=== PATIENT | female | born 1960 | race Asian ===

== ENCOUNTER 2019-02-10 00:07 | Inpatient (IN) | payer MEDICAID ==
[~2019-02-10] VITALS: Ht 152.4 cm; Wt 52.2 kg
[2019-02-10] VITALS (9 sets, daily range): BP systolic 97–127
[2019-02-10] MEDS ORDERED: NACL 0.9% 1,000 ML IV ONE (00:30)
[2019-02-10 00:46] LABS: BASOPHILS % (AUTO) 0.4 % (0.0-2.0); EOSINOPHILS # (AUTO) 0.1 K/uL (0.0-0.4); EOSINOPHILS % (AUTO) 1.2 % (0.0-4.0); HEMATOCRIT 40.1 % (36-48); HEMOGLOBIN 13.4 g/dL (12.0-16.0); LYMPHOCYTES # (AUTO) 3.5 K/uL (1.0-5.5); LYMPHOCYTES % (AUTO) 45.5 % (20.5-51.5); MEAN CORPUSCULAR HEMOGLOBIN 32 pg (27-31); MEAN CORPUSCULAR HGB CONC 33 % (32-36); MEAN CORPUSCULAR VOLUME 97 fL (79.0-98.0); MONOCYTES # (AUTO) 0.8 K/uL (0.0-1.0); MONOCYTES % (AUTO) 10.3 % (1.7-9.3); NEUTROPHILS # (AUTO) 3.3 K/uL (1.8-7.7); NEUTROPHILS % (AUTO) 42.6 % (40.0-70.0); PLATELET COUNT (AUTO) 219 K/uL (130-430); RED BLOOD CELL COUNT(AUTO) 4.13 MIL/uL (4.2-6.2); RED CELL DISTRIBUTION WIDTH 12.9 % (9.0-15.0); WHITE BLOOD COUNT (AUTO) 7.7 K/uL (4.8-10.8)
[2019-02-10 01:12] LABS: ANION GAP 9 (5-15); CALCIUM 9.2 mg/dL (8.4-11.0); CHLORIDE 103 mmol/L (98-107); CREATININE 0.58 mg/dL (0.55-1.30); GLUCOSE 108 mg/dL (70-99); POTASSIUM 3.6 mmol/L (3.5-5.1); SODIUM SERUM 138 mmol/L (136-145); UREA NITROGEN, BLOOD 18 mg/dL (8-21)
[2019-02-10] MEDS ORDERED: BISO5TAB15 PO (01:13)
[2019-02-10 01:21] LABS: ALANINE AMINOTRANSFERASE 22 U/L (12-78); ALBUMIN 3.6 g/dL (3.4-4.8); ASPARTATE AMINOTRANSFERASE 26 U/L (10-37); TOTAL BILIRUBIN 0.4 mg/dL (0.0-1.0)
[2019-02-10 01:25] LABS: GFR AFRICAN AMERICAN 137 mL/min (>90)
[2019-02-10 02:10] LABS: BILIRUBIN,URINE NEGATIVE (NEGATIVE); CLARITY/URINE CLEAR (CLEAR); COLOR,URINE YELLOW (YELLOW); GLUCOSE,URINE NEGATIVE (NEGATIVE); KETONES,URINE NEGATIVE (NEGATIVE); LEUKOCYTE ESTERASE ,URINE NEGATIVE (NEGATIVE); NITRITE, URINE NEGATIVE (NEGATIVE); PROTEIN URINE NEGATIVE (NEGATIVE); UROBILINOGEN,URINE 0.2 (0.2-1.0)
[2019-02-10 02:17] LABS: BLOOD, URINE TRACE (NEGATIVE)
[2019-02-10 03:18] LABS: BACTERIA,URINE FEW /HPF (None Seen); WBC,URINE 0-3 /HPF (0-3)
[2019-02-10] MEDS ORDERED: MORPHINE 2 MG/ML INJ. SYRINGE IVP PRN (04:15)
[2019-02-10] MEDS ORDERED: ONDANSETRON HCL 4 MG/2 ML VIAL IVP PRN (04:15)
[2019-02-10] MEDS ORDERED: ALBUTEROL SULFATE 0.083% 2.5 MG/3 ML VIAL.NEB INH PRN (04:15)
[2019-02-10] MEDS ORDERED: MORPHINE 4 MG/ML INJ. SYRINGE IVP PRN (04:15)
[2019-02-10] MEDS: NACL 0.9% 1,000 ML IV SCH ×2 (06:01→17:53)
[2019-02-10 09:22] LABS: BASOPHILS % (AUTO) 0.2 % (0.0-2.0); EOSINOPHILS % (AUTO) 0.1 % (0.0-4.0); HEMATOCRIT 40.8 % (36-48); HEMOGLOBIN 13.6 g/dL (12.0-16.0); LYMPHOCYTES # (AUTO) 1.9 K/uL (1.0-5.5); LYMPHOCYTES % (AUTO) 23.8 % (20.5-51.5); MEAN CORPUSCULAR HEMOGLOBIN 32 pg (27-31); MEAN CORPUSCULAR HGB CONC 33 % (32-36); MEAN CORPUSCULAR VOLUME 97 fL (79.0-98.0); MONOCYTES # (AUTO) 0.4 K/uL (0.0-1.0); MONOCYTES % (AUTO) 5.4 % (1.7-9.3); NEUTROPHILS # (AUTO) 5.6 K/uL (1.8-7.7); NEUTROPHILS % (AUTO) 70.5 % (40.0-70.0); PLATELET COUNT (AUTO) 230 K/uL (130-430); RED BLOOD CELL COUNT(AUTO) 4.21 MIL/uL (4.2-6.2); RED CELL DISTRIBUTION WIDTH 12.9 % (9.0-15.0)
[2019-02-10 09:46] LABS: ALBUMIN 3.6 g/dL (3.4-4.8)
[2019-02-10] MEDS: ASPIRIN 81 MG TAB.CHEW PO SCH (09:58)
[2019-02-10 10:03] LABS: ALANINE AMINOTRANSFERASE 27 U/L (12-78); TOTAL BILIRUBIN 0.6 mg/dL (0.0-1.0)
[2019-02-10 10:13] LABS: POTASSIUM 4.4 mmol/L (3.5-5.1)
[2019-02-10 10:34] LABS: ANION GAP 8 (5-15); ASPARTATE AMINOTRANSFERASE 30 U/L (10-37); CALCIUM 9.1 mg/dL (8.4-11.0); CHLORIDE 105 mmol/L (98-107); CREATININE 0.55 mg/dL (0.55-1.30); GLUCOSE 111 mg/dL (70-99); SODIUM SERUM 139 mmol/L (136-145); THYROID STIMULATING HORMONE 1.15 uIu/mL (0.36-3.74); UREA NITROGEN, BLOOD 9 mg/dL (8-21)
[2019-02-10 11:10] LABS: GFR AFRICAN AMERICAN 145 mL/min (>90)
[2019-02-10 11:20] LABS: CHOLESTEROL 168 mg/dL (<200); HDL CHOLESTEROL 85 mg/dL (>55); LDL CHOLESTEROL 67 mg/dL (<100); TRIGLYCERIDES 86 mg/dL (30-150)
[2019-02-11] VITALS (10 sets, daily range): BP systolic 105–149
[2019-02-11] MEDS: NACL 0.9% 1,000 ML IV SCH ×3 (04:01→20:11)
[2019-02-11 08:06] LABS: HEMOGLOBIN A1C 5.4 % (4.8-5.6)
[2019-02-11 08:09] LABS: BASOPHILS % (AUTO) 0.3 % (0.0-2.0); EOSINOPHILS # (AUTO) 0.1 K/uL (0.0-0.4); EOSINOPHILS % (AUTO) 1.1 % (0.0-4.0); HEMATOCRIT 38.7 % (36-48); HEMOGLOBIN 12.9 g/dL (12.0-16.0); LYMPHOCYTES # (AUTO) 2.3 K/uL (1.0-5.5); MEAN CORPUSCULAR HEMOGLOBIN 33 pg (27-31); MEAN CORPUSCULAR HGB CONC 33 % (32-36); MEAN CORPUSCULAR VOLUME 97 fL (79.0-98.0); MONOCYTES # (AUTO) 0.4 K/uL (0.0-1.0); NEUTROPHILS # (AUTO) 2.7 K/uL (1.8-7.7); NEUTROPHILS % (AUTO) 48.6 % (40.0-70.0); PLATELET COUNT (AUTO) 211 K/uL (130-430); RED BLOOD CELL COUNT(AUTO) 3.98 MIL/uL (4.2-6.2); RED CELL DISTRIBUTION WIDTH 12.7 % (9.0-15.0)
[2019-02-11 08:21] LABS: ALBUMIN 3.3 g/dL (3.4-4.8); CALCIUM 8.5 mg/dL (8.4-11.0); CREATININE 0.51 mg/dL (0.55-1.30); POTASSIUM 3.9 mmol/L (3.5-5.1); TOTAL BILIRUBIN 0.6 mg/dL (0.0-1.0); WHITE BLOOD COUNT (AUTO) 5.5 K/uL (4.8-10.8)
[2019-02-11] MEDS: ASPIRIN 81 MG TAB.CHEW PO SCH (08:41)
[2019-02-12] VITALS: BP_SYST 132
[2019-02-12] MEDS: NACL 0.9% 1,000 ML IV SCH ×2 (01:17→18:20)
[2019-02-12 03:06] LABS: CORTISOL (SERUM) 19.1 ug/dL (.)
[2019-02-12 08:00] VITALS: BP_SYST 127
[2019-02-12] MEDS: ASPIRIN 81 MG TAB.CHEW PO SCH (09:20)
[2019-02-12] MEDS ORDERED: LOSARTAN POTASSIUM 25 MG TABLET PO ONE (12:30)
[2019-02-12 20:00] VITALS: BP_SYST 135
[2019-02-12 20:09] VITALS: BP_SYST 135
[2019-02-13] MEDS ORDERED: LOSARTAN POTASSIUM 25 MG TABLET PO SCH (09:00)
== END 2019-02-12 21:09 | disposition home or self-care (01) | DRG 48 ==
LOC: SED 00:07 → STU 03:35 → OBSVTOIN 02-11 09:44
PROVIDERS: ADMIT Internal Medicine Hospice and Palliative Medicine; ATTEND Internal Medicine Hospice and Palliative Medicine
DX: G90.8 Other disorders of autonomic nervous system (principal); S09.90XA Unspecified injury of head, initial encounter; I10 Essential (primary) hypertension; W18.39XA Other fall on same level, initial encounter; Y93.89 Activity, other specified; Y99.8 Other external cause status; Z79.899 Other long term (current) drug therapy; Y92.098 Other place in other non-institutional residence as the place of occurrence of the external cause
CPT/HCPCS: 36415; 70450-TC; 70551; 71045; 80053; 80061; 81000-TC; 82533; 82550-TC; 82962; 83036; 83880; 84443-TC; 84484; 85025; 85379; 93005; 93306; 93880; 95816; 96360; 97116-GP; 99285; G0378; J7030

== ENCOUNTER 2019-04-30 12:56 | Emergency (ER) | payer MEDICAID ==
[~2019-04-30] VITALS: Ht 152.4 cm; Wt 52.2 kg
[2019-04-30 13:23] VITALS: BP_SYST 114
--- NOTE | 2019-04-30 13:30 | NUR ---
Patient to ER bed 6 to gown for evaluation. Side rails up.
--- NOTE | 2019-04-30 13:35 | NUR ---
PT CAME TO ER FOR L LOWER LEG PAIN 10/06. SHE IS ON MONITOR AT THIS TIME WITH FAMILY AT BEDSIDE
--- NOTE | 2019-04-30 13:50 | NUR ---
ER at bedside examining patient.
[2019-04-30] MEDS ORDERED: IBUPROFEN 600 MG TABLET PO ONE (15:00)
--- NOTE | 2019-04-30 15:00 | NUR ---
PT RESTING IN [facility] AT THIS TIME NO COMPLAINTS OR DISTRESS NOTED.
--- NOTE | 2019-04-30 16:09 | NUR ---
PT RESTING IN GURNEY WITH FAMILY AT BEDSIDE.
[2019-04-30 16:31] VITALS: BP_SYST 135
--- NOTE | 2019-04-30 16:31 | NUR ---
Patient given written and verbal discharge instructions and verbalizes understanding. ER MD Moreno discussed with patient the results and treatment provided. Patient in stable condition. ID arm band removed. Rx of Ibuprofen given. Patient educated on pain management and to follow up with PMD. Pain Scale 0. Opportunity for questions provided and answered. Medication side effect fact sheet provided.
== END 2019-04-30 16:31 | disposition home or self-care (01) ==
LOC: SED 12:56
DX: M25.562 Pain in left knee (principal)
CPT/HCPCS: 73564; 93971; 99284